=== PATIENT | female | born 1970 | race Caucasian/White ===

== ENCOUNTER 2018-01-13 02:50 | Emergency (ER) | payer OTHER ==
[2016-07-09 13:28] VITALS: BP 133/85
[~2018-01-13 02:50] MED LIST: DIAZ10TA4 PO; DRON2.5C PO; HYDR-2679 PO; HYDR-971 PO; HYDR50CA PO; QUET300T5 PO; SULF1TAB24 PO; ZOLP5TAB PO
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
== END 2018-01-13 03:12 | disposition left against medical advice (07) ==
LOC: ER 02:50
DX: F22 Delusional disorders (principal); F31.9 Bipolar disorder, unspecified; F41.9 Anxiety disorder, unspecified; M79.7 Fibromyalgia; K21.9 Gastro-esophageal reflux disease without esophagitis; K58.9 Irritable bowel syndrome, unspecified; Z88.6 Allergy status to analgesic agent
CPT/HCPCS: 99281

== ENCOUNTER 2018-02-26 19:12 | Emergency (ER) | payer OTHER ==
[~2018-02-26] VITALS: Ht 162.6 cm; Wt 68.0 kg
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
[2018-02-26] MEDS ORDERED: IV NORMAL SALINE 1,000ML 1,000 ML IV ONE (20:15)
[2018-02-26 20:27] LABS: BASO # 0.1 x10^3/uL (0.0-0.2); BASO % 1 % (0-3); EOS % 0 % (0-3); HEMATOCRIT 42.9 % (36.0-47.0); HEMOGLOBIN 14.3 g/dL (12.0-15.5); LYMPH # 1.4 x10^3/uL (1.0-4.8); LYMPH % 13 % (24-48); MEAN CORPUSCULAR HEMOGLOBIN 32 pg (25-35); MEAN CORPUSCULAR HGB CONC 33 g/dL (31-37); MEAN CORPUSCULAR VOLUME 94 fL (79-100); MONO # 0.7 x10^3/uL (0.0-1.1); MONO % 6 % (0-9); NEUT # 9.2 x10^3uL (1.8-7.7); NEUT % 81 % (31-73); PLATELET COUNT 241 x10^3/uL (140-400); RED BLOOD COUNT 4.55 x10^6/uL (3.50-5.40); RED CELL DISTRIBUTION WIDTH 14.1 % (11.5-14.5); WHITE BLOOD COUNT 11.5 x10^3/uL (4.0-11.0)
[2018-02-26 20:36] LABS: CALCIUM 9.4 mg/dL (8.5-10.1); CREATININE 1.3 mg/dL (0.6-1.0); GFR 43.7; POTASSIUM 4.1 mmol/L (3.5-5.1)
[2018-02-26 21:25] VITALS: BP 116/70
== END 2018-02-26 21:42 | disposition home or self-care (01) ==
LOC: ER 19:12
DX: S09.90XA Unspecified injury of head, initial encounter (principal); R51 Headache; R42 Dizziness and giddiness; M79.7 Fibromyalgia; K21.9 Gastro-esophageal reflux disease without esophagitis; K58.9 Irritable bowel syndrome, unspecified; Z88.6 Allergy status to analgesic agent; Z88.8 Allergy status to other drugs, medicaments and biological substances; X58.XXXA Exposure to other specified factors, initial encounter; Y93.89 Activity, other specified; Y99.8 Other external cause status; Y92.89 Other specified places as the place of occurrence of the external cause
CPT/HCPCS: 36415; 80048; 85025; 96360; 99284-25; J7030

== ENCOUNTER 2020-11-16 14:25 | Emergency (ER) | payer SELFPAY ==
[~2020-11-16] VITALS: Ht 162.6 cm; Wt 75.0 kg
[~2020-11-16 14:25] MED LIST changes: +HYDR-3165 PO; -HYDR-971 PO
--- NOTE | 2020-11-16 14:39 | PHYS DOC ---
Past History Past Medical History: Anxiety, Depression, Fibromyalgia, GERD, IBS Past Surgical History: No Surgical History Alcohol Use: Rarely Drug Use: None Adult General Chief Complaint Chief Complaint: MECHANICAL FALL HPI HPI Patient is a 50-year-old female who presents via EMS for fall. Patient has been in detention and was in the process of getting discharge when she bent over to nut picker a fallen cigarette out of her pocket, when leaning over she lost her balance and fell forward hitting the bridge of her nose on the wall. No loss of consciousness, not on any blood thinners, was ambulatory afterwards without any motor or sensory function deficits or other neurologic deficits noted. EMS was subsequently contacted and patient brought to our ER due to several abrasions and bleeding on the bridge of her nose Review of Systems Review of Systems Fourteen body systems of review of systems have been reviewed. See HPI for pertinent positives and negative responses, other [place] all other systems are negative, non-pertinent or non-contributory Allergies Allergies Allergies Coded Allergies Type Severity Reaction Last Updated Verified diphenhydramine Allergy Severe 06/29/14 No aspirin Allergy Intermediate 06/29/14 No Physical Exam Physical Exam Constitutional: Pt is oriented to person, place, and time. Pt appears well-developed and well- nourished. HEENT: Head: Normocephalic and atraumatic. TMs clear, no hemotympanum Conjunctivae and EOM are normal. Pupils are equal, round, and reactive to light. Oropharynx is clear and moist. No hematomas or lacerations or abrasions to face or scalp OP clear, no blood, no malocclusion, dentition intact Nares clear, no nasal septal hematoma Midface stable Neck: C-spine midline nontender, no step-offs Cardiovascular: Normal rate, regular rhythm and normal heart sounds. Pulmonary/Chest: Effort normal and breath sounds normal. No respiratory distress. No wheezes. CTA bilaterally Abdominal: Soft. Bowel sounds are normal. Pt exhibits no distension. There is no tenderness. Musculoskeletal: No bony tenderness to extremities, no deformities, full ROM extremities Chest wall stable Pelvis stable and non-tender No vertebral TTP and spine without stepoffs Neurological: Pt is alert and oriented to person, place, and time. Moving all extremities willfully, able to wiggle all fingers and toes Alert and oriented x 3 Motor and sensory function intact Skin: Skin is warm and dry. Numerous abrasions noted to face, most notable abrasion to distal portion of nose, small abrasion with mild laceration that does not require suture repair over bridge of nose approximately, superficial abrasion noted to left inferior orbit Psychiatric: Tearful affect Current Patient Data Vital Signs Vital Signs Date Time Temp Pulse Resp B/P (MAP) Pulse Ox O2 Delivery O2 Flow Rate FiO2 11/16/20 15:45 84 123/73 (90) 99 11/16/20 14:35 98.1 75 18 108/67 (81) 98 Room Air EKG EKG [] Radiology/Procedures Radiology/Procedures PROCEDURE: FACIAL BONES 3+V XR FACIAL BONES COMPLETE 3+ VIEWS 11/16/2020 3:05 PM INDICATION: Nasal trauma, left-sided pain COMPARISON: None available. TECHNIQUE: 3 views of the skull are provided. FINDINGS/ IMPRESSION: No acute fracture or dislocation. Paranasal sinuses are well aerated. Nasal septum is predominantly midline. Mild degenerative changes of the cervical spine are present. Electronically signed by: Tiff Lester MD (11/16/2020 3:09 PM) [id number] Heart Score C/O Chest Pain: No Risk Factors: Risk Factors: DM, Current or recent (<one month) smoker, HTN, HLP, family history of CAD, obesity. Risk Scores: Risk Factors: DM, Current or recent (<one month) smoker, HTN, HLP, family history of CAD, obesity. Course & Med Decision Making Course & Med Decision Making Hemodynamically stable patient with history of fall without loss of consciousness and physical exam findings concerning for superficial abrasions to nose only Due to palpable pain along bridge of nose, radiograph of facial bones performed and grossly negative. Edmonson and Nexus rules for head and neck negative, I discussed these at length with patient and joint decision to defer imaging and further radiation exposure Supportive care was advised. Patient was cleaned while in ER. P.o. Tylenol was administered with adequate pain control. Dermabond was used to glue proximal portion of nose bridge with no other intervention required. Ultimately, patient wanting to go home. I feel this is acceptable as she is hemodynamically stable and ambulatory without any other neurologic deficits. Strict return precautions discussed with good understanding by patient. All questions and concerns addressed prior to ER departure in stable condition Dragon Disclaimer Dragon Disclaimer This electronic medical record was generated, in whole or in part, using a voice recognition dictation system. Departure Departure: Impression: Primary Impression: Closed head injury without loss of consciousness Additional Impression: Nose abrasion, non-infected Disposition: 01 DC HOME SELF CARE/HOMELESS Condition: STABLE Referrals: PCP,NO (PCP) Patient Instructions: Abrasion, [id number], Fall Prevention and Home Safety Additional Instructions: Keep your abrasions clean and dry. You may apply bandages and antibiotic ointment as needed but they should heal well without any further treatment. Return to the ED if you develop worsening pain, swelling, redness, or fever. Problem Qualifiers ROSALINDA STEIN DO Nov 16, 2020 14:39
[2020-11-16] MEDS ORDERED: ACETAMINOPHEN 500 MG TABLET PO ONE (15:00)
--- NOTE | 2020-11-16 15:12 | RAD ---
XR FACIAL BONES COMPLETE 3+ VIEWS 11/16/2020 3:05 PM INDICATION: Nasal trauma, left-sided pain COMPARISON: None available. TECHNIQUE: 3 views of the skull are provided. FINDINGS/ IMPRESSION: No acute fracture or dislocation. Paranasal sinuses are well aerated. Nasal septum is predominantly midline. Mild degenerative changes of the cervical spine are present. Electronically signed by: Tiff Lester MD (11/16/2020 3:09 PM) [id number]
[2020-11-16 15:45] VITALS: BP 123/73
== END 2020-11-16 16:00 | disposition home or self-care (01) ==
LOC: ER 14:25
DX: S01.21XA Laceration without foreign body of nose, initial encounter (principal); S09.90XA Unspecified injury of head, initial encounter; F41.9 Anxiety disorder, unspecified; F32.9 Major depressive disorder, single episode, unspecified; M79.7 Fibromyalgia; K21.9 Gastro-esophageal reflux disease without esophagitis; K58.9 Irritable bowel syndrome, unspecified; Z88.6 Allergy status to analgesic agent; Z88.8 Allergy status to other drugs, medicaments and biological substances; W18.09XA Striking against other object with subsequent fall, initial encounter; Y93.89 Activity, other specified; Y92.148 Other place in prison as the place of occurrence of the external cause; Y99.8 Other external cause status
CPT/HCPCS: 12011; 70150; 99284

== ENCOUNTER 2020-12-05 12:27 | Emergency (ER) | payer SELFPAY ==
[~2020-12-05] VITALS: Ht 162.6 cm; Wt 70.1 kg
[2020-12-05 12:45] VITALS: BP 123/69
[2020-12-05] MEDS ORDERED: PENI500T PO (13:07)
--- NOTE | 2020-12-05 13:27 | PHYS DOC ---
Past History Past Medical History: Anxiety, Fibromyalgia, Other Additional Past Medical Histor: PTSD Past Surgical History: No Surgical History Alcohol Use: None Drug Use: None General Adult EDM: Chief Complaint: DENTAL PROBLEM HPI: HPI: Patient is a 50-year-old female who presents with right upper dental pain. Patient states that she has had this pain before about a year ago but resolved after antibiotics. Patient states because of Covid she was unable to get into the dental college to have surgery done on the tooth. Patient is homeless and is requesting resources for dental college. Patient is reporting pain 4/out of 10, took ibuprofen at 930 this morning. Denies facial swelling. Patient is a daily smoker and sometimes uses marijuana and methamphetamines. Denies all other health history. Review of Systems: Review of Systems: Constitutional: Denies fever or chills Eyes: Denies change in visual acuity HENT: Denies nasal congestion, right upper dental pain Respiratory: Denies cough or shortness of breath Cardiovascular: Denies chest pain or edema GI: Denies abdominal pain, nausea, vomiting, bloody stools or diarrhea : Denies dysuria Musculoskeletal: Denies back pain or joint pain Integument: Denies rash Neurologic: Denies headache, focal weakness or sensory changes Endocrine: Denies polyuria or polydipsia Lymphatic: Denies swollen glands Psychiatric: Denies depression or anxiety Allergies: Allergies: Allergies Coded Allergies Type Severity Reaction Last Updated Verified diphenhydramine Allergy Severe 06/29/14 No aspirin Allergy Intermediate 06/29/14 No Physical Exam: PE: Constitutional: Well developed, well nourished, no acute distress, non-toxic appearance. [] HENT: Normocephalic, atraumatic, teeth 2, 3 maxillary, blackened, cracked Eyes: PERRLA, EOMI, conjunctiva normal, no discharge. [] Neck: Normal range of motion, no tenderness, supple, no stridor. [] Cardiovascular:Heart rate regular rhythm, no murmur [] Lungs & Thorax: Bilateral breath sounds clear to auscultation [] Abdomen: Bowel sounds normal, soft, no tenderness, no masses, no pulsatile masses. [] Skin: Warm, dry, no erythema, no rash. [] Back: No tenderness, no CVA tenderness. [] Extremities: No tenderness, no cyanosis, no clubbing, ROM intact, no edema. [] Neurologic: Alert and oriented X 3, normal motor function, normal sensory fu nction, no focal deficits noted. [] Psychologic: Affect normal, judgement normal, mood normal. [] EKG: EKG: [] Radiology/Procedures: Radiology/Procedures: [] Heart Score: C/O Chest Pain: No Risk Factors: Risk Factors: DM, Current or recent (<one month) smoker, HTN, HLP, family history of CAD, obesity. Risk Scores: Score 0 - 3: 2.5% MACE over next 6 weeks - Discharge Home Score 4 - 6: 20.3% MACE over next 6 weeks - Admit for Clinical Observation Score 7 - 10: 72.7% MACE over next 6 weeks - Early Invasive Strategies Course & Med Decision Making: Course & Med Decision Making Pertinent Labs and Imaging studies reviewed. (See chart for details) [] Patient is reporting pain to teeth to, 3 maxillary right side. Teeth are broken and black. Patient states that she has had this dental problem for about a year but was unable to get surgery due to Covid. Patient is homeless and is needing resources for the dental [facility] to have the tooth removed. Patient reports last on this happened she took an antibiotic which helped the situation for a while. Since then a prescription to [facility] for penicillin and instructed patient to continue taking ibuprofen for discomfort. Patient denies needing anything for pain while in the emergency room. I have also given patient a list of resources. Patient is grateful and okay with this plan. [place] Disclaimer: [place] Disclaimer: This electronic medical record was generated, in whole or in part, using a voice recognition dictation system. Departure Departure: Impression: Primary Impression: Pain, dental Disposition: 01 DC HOME SELF CARE/HOMELESS Condition: STABLE Referrals: PCP,NO (PCP) Patient Instructions: Dental Pain, [id number] Additional Instructions: You were seen in the emergency room today for right upper dental pain. 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 Continue taking ibuprofen at home for discomfort. I am giving you a list of resources for a dentist to have further evaluation. Return to emergency room with worsening symptoms or concerns. EMERGENCY DEPARTMENT GENERAL DISCHARGE INSTRUCTIONS Thank you for coming to [facility] (ED) today and trusting us with you care. We trust that you had a positivie experience in our Emergency Department. If you wish to speak to the department management, you may call the director at [phone]. YOUR FOLLOW UP INSTRUCTIONS ARE FOLLOWS: 1. Do you have a private Doctor? If you do not have a private doctor, please ask for a resource list of physicians or clinics that may be able to assist you with follow up care. 2. The Emergency Physician has interpreted your x-rays. The X-Ray specialist will also review them. If there is a change in the findings, you will be notified in 48 hours when at all possible. 3. A lab test or culture has been done, your results will be reviewed and you will be notified if you need a change in treatment. ADDITIONAL INSTRUCTIONS AND INFORMATION: 1. Your care today has been supervised by a physician who is specially trained in emergency care. Many problems require more than one evaluation for a complete diagnosis and treatment. We recommend that you schedule your follow up appointment as recommended to ensure complete treatment of you illness or injury. If you are unable to obtain follow up care and continue to have a problem, or if your condition worsens, we recommend that you return to the ED. 2. We are not able to safely determine your condition over the phone nor are we able to give sound medical advice over the phone. For these safety reasons, if you call for medical advice we will ask you to come to the ED for further evaluation. 3. If you have any questions regarding these discharge instructions please call the ED at [phone]. SAFETY INFORMATION: In the interest of safety, wellness, and injury prevention; we encourage you to wear your sealbelt, if you smoke; quite smoking, and we encourage family to use a protective helmet for bicycling and other sporting events that present an increased risk for head injury. IF YOUR SYMPTOMS WORSEN OR NEW SYMPTOMS DEVELOP, OR YOU HAVE CONCERNS ABOUT YOUR CONDITION; OR IF YOUR CONDITION WORSENS WHILE YOU ARE WAITING FOR YOUR FOLLOW UP APPOINTMENT; EITHER CONTACT YOUR PRIMARY CARE DOCTOR, THE PHYSICIAN WHOSE NAME AND NUMBER YOU WERE GIVEN, OR RETURN TO THE ED IMMEDIATELY. Scripts Penicillin V Potassium (PENICILLIN V POTASSIUM) 500 Mg Tablet 500 MG PO BID for infection for 10 Days, #20 TAB Prov: LUIS CANSECO APRN 12/05/20 LUIS CANSECO APRN Dec 05, 2020 13:27
== END 2020-12-05 13:30 | disposition home or self-care (01) ==
LOC: ER 12:27
DX: K08.89 Other specified disorders of teeth and supporting structures (principal); F41.9 Anxiety disorder, unspecified; M79.7 Fibromyalgia; F43.10 Post-traumatic stress disorder, unspecified; Z59.0 Homelessness; Z88.8 Allergy status to other drugs, medicaments and biological substances; Z88.6 Allergy status to analgesic agent
CPT/HCPCS: 99283

== ENCOUNTER 2021-03-05 11:57 | Emergency (ER) | payer SELFPAY ==
[~2021-03-05] VITALS: Ht 162.6 cm; Wt 75.6 kg
[~2021-03-05 11:57] MED LIST changes: +PENI500T PO
[2021-03-05] MEDS ORDERED: OXYMETAZOLINE 0.05% NASAL SPRAY 30ML BOTTLE. NS ONE (12:45)
[2021-03-05] MEDS ORDERED: IBUPROFEN 600 MG TABLET. PO ONE (12:45)
[2021-03-05] MEDS ORDERED: CETIRIZINE HCL 10 MG TABLET PO ONE (12:45)
--- NOTE | 2021-03-05 13:22 | PHYS DOC ---
Past History Past Medical History: Anxiety, Fibromyalgia, Other Additional Past Medical Histor: PTSD (LUIS CANSECO APRN) Past Surgical History: No Surgical History (LUIS CANSECO APRN) Alcohol Use: None Drug Use: None (LUIS CANSECO APRN) General Adult EDM: Chief Complaint: HEAT EXPOSURE HPI: HPI: Patient is a 50-year-old female presents with nasal congestion, sneezing, runny nose, nonproductive cough. Patient states "I live in the homeless senior living and whenever I stay there I feel like I get sick after eating their food or drinking the water, and my teeth always hurt". "I feel like I been running a fever". Patient reports she is taken ibuprofen with no relief. Patient has history of seasonal allergies. Denies pain. Denies shortness of breath. Patient is a daily smoker. (LUIS CANSECO APRN) Review of Systems: Review of Systems: Constitutional: Reports fever Eyes: Denies change in visual acuity HENT: Reports nasal congestion Respiratory: Reports nonproductive cough, denies shortness of breath Cardiovascular: Denies chest pain or edema GI: Denies abdominal pain, nausea, vomiting, bloody stools or diarrhea : Denies dysuria Musculoskeletal: Denies back pain or joint pain Integument: Denies rash Neurologic: Denies headache, focal weakness or sensory changes Endocrine: Denies polyuria or polydipsia Lymphatic: Denies swollen glands Psychiatric: Denies depression or anxiety (LUIS CANSECO APRN) Current Medications: Current Meds: Current Medications Medications (Trade) Dose Ordered Sig/Tyree Start Time Stop Time Status Last Admin Dose Admin Cetirizine HCl (ZyrTEC) 10 mg 1X ONCE 03/05/21 12:45 03/05/21 12:46 DC 03/05/21 12:43 10 MG Fluticasone Propionate (Flonase) 2 spray DAILY 03/06/21 09:00 03/05/21 12:33 DC Ibuprofen (Motrin) 600 mg 1X ONCE 03/05/21 12:45 03/05/21 12:46 DC 03/05/21 12:43 600 MG Oxymetazoline HCl (Afrin) 2 spray 1X ONCE 03/05/21 12:45 03/05/21 12:46 DC 03/05/21 12:44 2 SPRAY (LUIS CANSECO APRN) Allergies: Allergies: Allergies Coded Allergies Type Severity Reaction Last Updated Verified diphenhydramine Allergy Severe 06/29/14 No aspirin Allergy Intermediate 06/29/14 No (LUIS CANSECO APRN) Physical Exam: PE: Constitutional: Well developed, well nourished, no acute distress, non-toxic appearance. [] HENT: Normocephalic, atraumatic, bilateral external ears normal, oropharynx moist, no oral exudates, runny nose with clear drainage Eyes: PERRLA, EOMI, conjunctiva normal, no discharge, red and watery eyes. [] Neck: Normal range of motion, no tenderness, supple, no stridor. [] Cardiovascular:Heart rate regular rhythm, no murmur [] Lungs & Thorax: Bilateral breath sounds clear to auscultation [] Abdomen: Bowel sounds normal, soft, no tenderness, no masses, no pulsatile masses. [] Skin: Warm, dry, no erythema, no rash. [] Back: No tenderness, no CVA tenderness. [] Extremities: No tenderness, no cyanosis, no clubbing, ROM intact, no edema. [] Neurologic: Alert and oriented X 3, normal motor function, normal sensory function, no focal deficits noted. [] Psychologic: Affect normal, judgement normal, mood normal. [] (LUIS CANSECO APRN) Current Patient Data: Vital Signs: Vital Signs Date Time Temp Pulse Resp B/P (MAP) Pulse Ox O2 Delivery O2 Flow Rate FiO2 03/05/21 12:04 99.3 90 18 150/82 100 Room Air (LUIS CANSECO APRN) EKG: EKG: [] (LUIS CANSECO APRN) Radiology/Procedures: Radiology/Procedures: [] (LUIS CANSECO APRN) Heart Score: C/O Chest Pain: No Risk Factors: Risk Factors: DM, Current or recent (<one month) smoker, HTN, HLP, family history of CAD, obesity. Risk Scores: Score 0 - 3: 2.5% MACE over next 6 weeks - Discharge Home Score 4 - 6: 20.3% MACE over next 6 weeks - Admit for Clinical Observation Score 7 - 10: 72.7% MACE over next 6 weeks - Early Invasive Strategies (LUIS CANSECO APRN) Course & Med Decision Making: Course & Med Decision Making Pertinent Labs and Imaging studies reviewed. (See chart for details) [] 50-year-old female presents with nasal congestion, sneezing, runny nose. Patient is afebrile. Patient given ibuprofen, Afrin, Zyrtec to treat allergy symptoms. Patient reports symptoms have improved. Discharging patient home with instructions for OTC medications to treat symptoms. Patient is hemodynamically stable. Patient is appreciative and okay with discharge plan. (LUIS CANSECO APRN) [place] Disclaimer: [place] Disclaimer: This electronic medical record was generated, in whole or in part, using a voice recognition dictation system. (LUIS CANSECO APRN) Attending Co-Sign The patient was seen and interviewed as well as examined at the bedside. The chart was reviewed. The case was discussed. Agree with the plan of care. (MARLO SCHWARZ DO) Departure Departure: Impression: Primary Impression: Allergic rhinitis Qualified Codes: J30.89 - Other allergic rhinitis Disposition: HOME / SELF CARE / HOMELESS Condition: STABLE Referrals: PCP,NO (PCP) Patient Instructions: Allergic Rhinitis Additional Instructions: You are seen in the emergency room for allergy symptoms. You were given Zyrtec, Afrin nose spray, ibuprofen to treat symptoms. You can purchase [id number] Zyrtec and ibuprofen to treat symptoms. Increase your fluid intake. Please return the emergency room if you have worsening symptoms or concerns EMERGENCY DEPARTMENT GENERAL DISCHARGE INSTRUCTIONS Thank you for coming to [facility] (ED) today and trusting us with you care. We trust that you had a positivie experience in our Emergency Department. If you wish to speak to the department management, you may call the director at [phone]. YOUR FOLLOW UP INSTRUCTIONS ARE FOLLOWS: 1. Do you have a private Doctor? If you do not have a private doctor, please ask for a resource list of physicians or clinics that may be able to assist you with follow up care. 2. The Emergency Physician has interpreted your x-rays. The X-Ray specialist will also review them. If there is a change in the findings, you will be notified in 48 hours when at all possible. 3. A lab test or culture has been done, your results will be reviewed and you will be notified if you need a change in treatment. ADDITIONAL INSTRUCTIONS AND INFORMATION: 1. Your care today has been supervised by a physician who is specially trained in emergency care. Many problems require more than one evaluation for a complete diagnosis and treatment. We recommend that you schedule your follow up appointment as recommended to ensure complete treatment of you illness or injury. If you are unable to obtain follow up care and continue to have a problem, or if your condition worsens, we recommend that you return to the ED. 2. We are not able to safely determine your condition over the phone nor are we able to give sound medical advice over the phone. For these safety reasons, if you call for medical advice we will ask you to come to the ED for further evaluation. 3. If you have any questions regarding these discharge instructions please call the ED at [phone]. SAFETY INFORMATION: In the interest of safety, wellness, and injury prevention; we encourage you to wear your sealbelt, if you smoke; quite smoking, and we encourage family to use a protective helmet for bicycling and other sporting events that present an increased risk for head injury. IF YOUR SYMPTOMS WORSEN OR NEW SYMPTOMS DEVELOP, OR YOU HAVE CONCERNS ABOUT YOUR CONDITION; OR IF YOUR CONDITION WORSENS WHILE YOU ARE WAITING FOR YOUR FOLLOW UP APPOINTMENT; EITHER CONTACT YOUR PRIMARY CARE DOCTOR, THE PHYSICIAN WHOSE NAME AND NUMBER YOU WERE GIVEN, OR RETURN TO THE ED IMMEDIATELY. LUIS CANSECO APRN Mar 05, 2021 13:22 MARLO SCHWARZ DO Mar 07, 2021 06:20
[2021-03-05 13:45] VITALS: BP 142/74
[2021-03-06] MEDS ORDERED: FLUTICASONE 50MCG/NASAL SPRAY 16GM BOTTLE. NS SCH (09:00)
== END 2021-03-05 13:57 | disposition home or self-care (01) ==
LOC: ER 11:57
DX: J30.9 Allergic rhinitis, unspecified (principal); F41.9 Anxiety disorder, unspecified; M79.7 Fibromyalgia; F43.10 Post-traumatic stress disorder, unspecified; Z88.6 Allergy status to analgesic agent; Z88.8 Allergy status to other drugs, medicaments and biological substances
CPT/HCPCS: 99284

== ENCOUNTER → 2021-03-15 | Outpatient (CLI) | payer OTHER ==
[2021-03-05 13:45] VITALS: BP 142/74
--- NOTE | 2021-03-15 15:35 | RAD ---
EXAMINATION: Chest radiograph. VIEWS: 2 COMPARISON: None INDICATION:50 years, Female, shortness of breath and productive cough. FINDINGS: Normal cardiomediastinal silhouette. No focal consolidation. Calcified granulomas in the right lung. No pleural effusion or pneumothorax. No acute osseous process. IMPRESSION: No acute cardiopulmonary process. Electronically signed by: Carmen Tabares MD (03/15/2021 3:32 PM) [facility]
== END ==
LOC: RAD 12:31
PROVIDERS: ATTEND Nurse Practitioner Primary Care
DX: J84.10 Pulmonary fibrosis, unspecified (principal); J98.4 Other disorders of lung
CPT/HCPCS: 71046